=== PATIENT | female | born 1995 ===

== ENCOUNTER 2017-09-10 19:04 | Emergency (ER) | payer OTHER ==
[2017-09-10 19:11] VITALS: RESP 18; TEMP 98.6; O2SAT 99
[2017-09-10 19:54] VITALS: BP 134/95
[2017-09-10] MEDS ORDERED: Oxycodone/Acetaminophen 5/325 mg Tab PO STA (20:11)
--- NOTE | 2017-09-10 20:14 | ED PDOC ---
HPI: Skin/Bite Injury Time Seen by Provider: 09/10/17 19:20 Chief Complaint (Nursing): Abnormal Skin Integrity Chief Complaint (Provider): Pilonidal Cyst History Per: Patient Additional Complaint(s): 22 yo female, no PMH, presents to ED for evaluation of a possible sacral abscess. Pt reports that she felt pain and swelling to the area starting on Monday night. Pt notes history of abscess to affected area in the past that required I&D x 2 thus far. No fever or chills. Pt admits she was advised to follow up with surgeon but has yet to do so. Past Medical History Reviewed: Nursing Documentation, Vital Signs Vital Signs: Last Vital Signs Temp 98.6 F 09/10/17 19:09 Pulse 140 H 09/10/17 19:54 Resp 18 09/10/17 19:09 BP 134/95 H 09/10/17 19:54 Pulse Ox 99 09/10/17 19:09 - Medical History PMH: Anxiety - Surgical History Surgical History: Tonsillectomy (w/ adenoidectomy) - Family History Family History: States: Unknown Family Hx - Social History Current smoker - smoking cessation education provided: No Alcohol: Social Drugs: Denies - Immunization History Hx Tetanus Toxoid Vaccination: Yes Hx Influenza Vaccination: Yes Hx Pneumococcal Vaccination: Yes - Home Medications Home Medications: Ambulatory Orders Medication Instructions Recorded oxyCODONE/Acetaminophen [Percocet 1 ea PO Q6 PRN #10 tab 08/17/16 5/325 mg Tab] Cephalexin [cephalexin] 500 mg PO QID #28 cap 08/20/16 Docusate [Colace] 100 mg PO BID #20 cap 08/20/16 Sulfamethoxazole/Trimethoprim 2 tab PO BID #28 tab 08/20/16 [Bactrim DS 800 mg-160 mg] oxyCODONE/Acetaminophen [Percocet 1 - 2 ea PO Q6 PRN #10 tab 08/20/16 5/325 mg Tab] Metoclopramide [Reglan] 10 mg PO Q8 PRN #12 tab 10/27/16 Propranolol [Inderal] 20 mg PO BID #60 tab 10/27/16 Nitrofurantoin Macrocrystals 100 mg PO BID #10 cap 10/30/16 [Macrobid] - Allergies Allergies/Adverse Reactions: Allergies Allergy/AdvReac Type Severity Reaction Status Date / Time cat dander Allergy RASH Verified 09/10/17 19:08 ibuprofen Allergy SWELLING Verified 09/10/17 19:08 Review of Systems ROS Statement: Except As Marked, All Systems Reviewed And Found Negative Skin: Positive for: Other (abscess) Physical Exam - Reviewed Nursing Documentation Reviewed: Yes Vital Signs Reviewed: Yes - Physical Exam Appears: Positive for: Well, Non-toxic, No Acute Distress Head Exam: Positive for: ATRAUMATIC, NORMAL INSPECTION, NORMOCEPHALIC Skin: Positive for: Normal Color, Warm, DRY Eye Exam: Positive for: EOMI, Normal appearance, PERRL ENT: Positive for: Normal ENT Inspection Neck: Positive for: Normal, Painless ROM Cardiovascular/Chest: Positive for: Regular Rate, Rhythm Respiratory: Positive for: CNT, Normal Breath Sounds Gastrointestinal/Abdominal: Positive for: Normal Exam, Bowel Sounds, Soft Back: Positive for: Normal Inspection Rectal: Positive for: Tenderness (over sacrum with erythema and edema) Extremity: Positive for: Normal ROM Neurologic/Psych: Positive for: Alert, Oriented - ECG O2 Sat by Pulse Oximetry: 99 Medical Decision Making Medical Decision Making: Site incised and drained by rewriter. Site packed. wound care discussed 2 day return for wound check and packing removal surgical consult advised Disposition - Clinical Impression Clinical Impression: Abscess - Patient ED Disposition Is Patient to be Admitted: No - Disposition Disposition: Routine/Home Disposition Time: 20:15 Condition: STABLE - POA Present On Arrival: None Incision and Drainage - Time Out Time Out: Side verified, Site verified - Consent obtained Consent obtained: Verbal - Performed by Performed by: Mid-level Provider - Indications Indications: Cutaneous abscess - Contraindications Contraindications: None - Patient tolerated procedure Patient tolerated procedure: Well
[2017-09-10] MEDS ORDERED: Tmp-Smz 800 mg-160 mg DS Tab PO STA (20:17)
[2017-09-10 20:45] VITALS: PULSE 114
== END 2017-09-10 20:40 | disposition home or self-care (01) ==
LOC: H.ER 19:04
DX: L05.91 Pilonidal cyst without abscess (principal); F41.9 Anxiety disorder, unspecified

== ENCOUNTER 2017-09-13 14:10 | Emergency (ER) | payer OTHER ==
[2017-09-13 14:21] VITALS: BP 146/80; PULSE 99; RESP 16; TEMP 97; O2SAT 98
--- NOTE | 2017-09-13 14:42 | ED PDOC ---
HPI: Wound Care - HPI Time Seen by Provider: 09/13/17 14:28 Chief Complaint (Nursing): Wound Check Chief Complaint (Provider): Wound Check History Per: Patient Exam Limitations: no limitations Additional Complaint(s): 25 y/o female presents to the ED for wound check. Patient had abscess near coccyx drained and packed a few days ago. Patient taking prescribed antibiotics and pain medication. Denies fever or any further medical complaints. Past Medical History Reviewed: Historical Data, Nursing Documentation, Vital Signs Vital Signs: Last Vital Signs Temp 97 F L 09/13/17 14:19 Pulse 99 H 09/13/17 14:19 Resp 16 09/13/17 14:19 BP 146/80 09/13/17 14:19 Pulse Ox 98 09/13/17 14:19 - Medical History PMH: Anxiety - Surgical History Surgical History: Tonsillectomy (w/ adenoidectomy) - Family History Family History: States: Unknown Family Hx - Immunization History Hx Tetanus Toxoid Vaccination: Yes Hx Influenza Vaccination: Yes Hx Pneumococcal Vaccination: Yes - Home Medications Home Medications: Ambulatory Orders Medication Instructions Recorded oxyCODONE/Acetaminophen [Percocet 1 ea PO Q6 PRN #10 tab 08/17/16 5/325 mg Tab] Cephalexin [cephalexin] 500 mg PO QID #28 cap 08/20/16 Docusate [Colace] 100 mg PO BID #20 cap 08/20/16 Sulfamethoxazole/Trimethoprim 2 tab PO BID #28 tab 08/20/16 [Bactrim DS 800 mg-160 mg] oxyCODONE/Acetaminophen [Percocet 1 - 2 ea PO Q6 PRN #10 tab 08/20/16 5/325 mg Tab] Metoclopramide [Reglan] 10 mg PO Q8 PRN #12 tab 10/27/16 Propranolol [Inderal] 20 mg PO BID #60 tab 10/27/16 Nitrofurantoin Macrocrystals 100 mg PO BID #10 cap 10/30/16 [Macrobid] Cephalexin [cephalexin] 500 mg PO BID #14 cap 09/10/17 Sulfamethoxazole/Trimethoprim 1 tab PO BID 5 Days tab 09/10/17 [Bactrim DS 800 mg-160 mg] oxyCODONE/Acetaminophen [Percocet 1 ea PO Q6 PRN #5 tab 09/10/17 5/325 mg Tab] - Allergies Allergies/Adverse Reactions: Allergies Allergy/AdvReac Type Severity Reaction Status Date / Time cat dander Allergy RASH Verified 09/13/17 14:19 ibuprofen Allergy SWELLING Verified 09/13/17 14:19 Review of Systems ROS Statement: Except As Marked, All Systems Reviewed And Found Negative (As per HPI, otherwise negative) Constitutional: Negative for: Fever Skin: Positive for: Other (abscess near coccyx) Physical Exam - Reviewed Nursing Documentation Reviewed: Yes Vital Signs Reviewed: Yes - Physical Exam Appears: Positive for: Non-toxic, No Acute Distress Skin: Positive for: Normal Color, Warm, Dry Respiratory: Negative for: Accessory Muscle Use, Respiratory Distress Neurologic/Psych: Positive for: Alert, Oriented (x3) - ECG O2 Sat by Pulse Oximetry: 98 (RA) Pulse Ox Interpretation: Normal Medical Decision Making Medical Decision Making: Time: 14:40 Patient is medically stable, and requires no further treatment in the ED at this time. Patient will be discharged home. Clinical Impression: wound check, abscess Scribe Attestation: Documented by Jim Chauhan acting as a scribe for Chloe Adam MD. Scribe Attestation: All medical record entries made by the Scribe were at my direction and personally dictated by me. I have reviewed the chart and agree that the record accurately reflects my personal performance of the history, physical exam, medical decision making, and the department course for this patient. I have also personally directed, reviewed, and agree with the discharge instructions and disposition. Disposition - Clinical Impression Clinical Impression: Wound check, abscess - Disposition Referrals: [facility] [Outside] Disposition: Routine/Home Disposition Time: 14:40 Condition: STABLE Instructions: Abscess (ED) Forms: [employer] (Japanese), [employer] ED School/Work Excuse
--- NOTE | 2017-09-13 14:42 | ED PDOC ---
HPI: Wound Care - HPI Time Seen by Provider: 09/13/17 14:28 Chief Complaint (Nursing): Wound Check Chief Complaint (Provider): Packing removal, gluteal eagion, placed 09/10/17 History Of Present Illness: Reports improvement of pain. Pt taking antibiotics as prescribed. Past Medical History Reviewed: Historical Data, Nursing Documentation, Vital Signs Vital Signs: Last Vital Signs Temp 97 F L 09/13/17 14:19 Pulse 99 H 09/13/17 14:19 Resp 16 09/13/17 14:19 BP 146/80 09/13/17 14:19 Pulse Ox 98 09/13/17 14:19 - Medical History PMH: Anxiety - Surgical History Surgical History: Tonsillectomy (w/ adenoidectomy) - Family History Family History: States: Unknown Family Hx - Living Arrangements Living Arrangements: With Family - Social History Current smoker - smoking cessation education provided: No - Immunization History Hx Tetanus Toxoid Vaccination: Yes Hx Influenza Vaccination: Yes Hx Pneumococcal Vaccination: Yes - Home Medications Home Medications: Ambulatory Orders Medication Instructions Recorded oxyCODONE/Acetaminophen [Percocet 1 ea PO Q6 PRN #10 tab 08/17/16 5/325 mg Tab] Cephalexin [cephalexin] 500 mg PO QID #28 cap 08/20/16 Docusate [Colace] 100 mg PO BID #20 cap 08/20/16 Sulfamethoxazole/Trimethoprim 2 tab PO BID #28 tab 08/20/16 [Bactrim DS 800 mg-160 mg] oxyCODONE/Acetaminophen [Percocet 1 - 2 ea PO Q6 PRN #10 tab 08/20/16 5/325 mg Tab] Metoclopramide [Reglan] 10 mg PO Q8 PRN #12 tab 10/27/16 Propranolol [Inderal] 20 mg PO BID #60 tab 10/27/16 Nitrofurantoin Macrocrystals 100 mg PO BID #10 cap 10/30/16 [Macrobid] Cephalexin [cephalexin] 500 mg PO BID #14 cap 09/10/17 Sulfamethoxazole/Trimethoprim 1 tab PO BID 5 Days tab 09/10/17 [Bactrim DS 800 mg-160 mg] oxyCODONE/Acetaminophen [Percocet 1 ea PO Q6 PRN #5 tab 09/10/17 5/325 mg Tab] - Allergies Allergies/Adverse Reactions: Allergies Allergy/AdvReac Type Severity Reaction Status Date / Time cat dander Allergy RASH Verified 09/13/17 14:19 ibuprofen Allergy SWELLING Verified 09/13/17 14:19 Review of Systems ROS Statement: Except As Marked, All Systems Reviewed And Found Negative Constitutional: Negative for: Fever, Chills Skin: Positive for: Other Physical Exam - Reviewed Nursing Documentation Reviewed: Yes Vital Signs Reviewed: Yes - Physical Exam Appears: Positive for: Well, Non-toxic, No Acute Distress Head Exam: Positive for: ATRAUMATIC, NORMAL INSPECTION, NORMOCEPHALIC Skin: Positive for: Warm. Negative for: Normal Color (No erythema in the sacral area, packing in place ) Eye Exam: Positive for: Normal appearance ENT: Positive for: Normal ENT Inspection Neck: Positive for: Normal, Painless ROM Respiratory: Negative for: Accessory Muscle Use, Respiratory Distress Back: Positive for: Normal Inspection Extremity: Positive for: Normal ROM Neurologic/Psych: Positive for: Alert, Oriented - ECG O2 Sat by Pulse Oximetry: 98 Pulse Ox Interpretation: Normal Disposition - Clinical Impression Clinical Impression: Wound check, abscess - Disposition Referrals: [facility] [Outside] Disposition: Routine/Home Disposition Time: 14:35 Condition: STABLE Instructions: Abscess (ED) Forms: [employer] (Irish), [facility] ED School/Work Excuse
== END 2017-09-13 14:52 | disposition home or self-care (01) ==
LOC: H.ER 14:10
DX: Z48.02 Encounter for removal of sutures (principal); F41.9 Anxiety disorder, unspecified

== ENCOUNTER 2018-09-01 14:16 | Emergency (ER) | payer MEDICAID, OTHER ==
[2018-09-01 14:55] VITALS: TEMP 98.4; O2SAT 100
[2018-09-01] MEDS ORDERED: Sodium Chloride 0.9% 1,000 ML IV SCH (15:45)
[2018-09-01 15:54] LABS: BASO # 0.1 K/uL (0.0-0.2); BASO % 0.9 % (0.0-2.0); EOS % 0.2 % (0.0-4.0); HEMOGLOBIN 12.9 g/dL (12.0-16.0); LYMPH # 1.6 K/uL (1.0-4.3); LYMPH % 26.5 % (20.0-40.0); MEAN CELL VOLUME 81.9 fl (81.0-99.0); MEAN CORPUSCULAR HEMOGLOBIN 27.3 pg (27.0-31.0); MEAN CORPUSCULAR HGB CONC 33.3 g/dL (33.0-37.0); MEAN PLATELET VOLUME 9.7 fl (7.2-11.7); MONO # 0.6 K/uL (0.0-0.8); MONO % 9.6 % (0.0-10.0); NEUT # 3.7 K/uL (1.8-7.0); NEUT % 62.8 % (50.0-75.0); RBC 4.71 Mil/uL (3.80-5.20); RED CELL DISTRIBUTION WIDTH 13.5 % (11.5-14.5)
[2018-09-01 16:05] LABS: ALBUMIN 4.4 g/dL (3.5-5.0); ALT/SGPT 43 U/L (9-52); AST/SGOT 40 U/L (14-36); BLOOD UREA NITROGEN 10 mg/dl (7-17); CALCIUM 9.7 mg/dL (8.4-10.2); GFR NON-AFRICAN AMERICAN > 60; LIPASE 49 U/L (23-300)
--- NOTE | 2018-09-01 17:25 | ED PDOC ---
HPI: Abdomen Time Seen by Provider: 09/01/18 15:22 Chief Complaint (Nursing): Abdominal Pain Chief Complaint (Provider): Renal Stones History Per: Patient History/Exam Limitations: no limitations Onset/Duration Of Symptoms: Days (5-6), Waxing/Waning, Intermittent Episodes Outside of [place] travel?: No Other Location:: LUQ and flank Current Symptoms Are (Timing): Gone Now Severity: Mild Location Of Pain/Discomfort: LUQ (Pt presents to the ED complaining of intermittent left sided pain in the flank and LUQ; pt inidicates that she has a history of renal stones several years ago prior to their passing. Pt is afebrile and hemodynamically intact) Associated Symptoms: Back Pain. denies: Fever, Chills, Nausea, Vomiting, Diarrhea, Loss Of Appetite, Urinary Symptoms Abnormal Vaginal Bleeding: No Past Medical History Reviewed: Historical Data, Nursing Documentation, Vital Signs Vital Signs: Last Vital Signs Temp 98.4 F 09/01/18 14:53 Pulse 117 H 09/01/18 14:53 Resp 16 09/01/18 14:53 BP 131/81 09/01/18 14:53 Pulse Ox 100 09/01/18 14:53 - Medical History PMH: Anxiety, Kidney Stones - Surgical History Surgical History: Tonsillectomy (w/ adenoidectomy) - Family History Family History: States: Unknown Family Hx - Living Arrangements Living Arrangements: With Family - Social History Alcohol: None Drugs: Denies - Immunization History Hx Tetanus Toxoid Vaccination: Yes Hx Influenza Vaccination: Yes Hx Pneumococcal Vaccination: Yes - Home Medications Home Medications: Ambulatory Orders Medication Instructions Recorded oxyCODONE/Acetaminophen [Percocet 1 ea PO Q6 PRN #10 tab 08/17/16 5/325 mg Tab] Cephalexin [cephalexin] 500 mg PO QID #28 cap 08/20/16 Docusate [Colace] 100 mg PO BID #20 cap 08/20/16 Sulfamethoxazole/Trimethoprim 2 tab PO BID #28 tab 08/20/16 [Bactrim DS 800 mg-160 mg] oxyCODONE/Acetaminophen [Percocet 1 - 2 ea PO Q6 PRN #10 tab 08/20/16 5/325 mg Tab] Metoclopramide [Reglan] 10 mg PO Q8 PRN #12 tab 10/27/16 Propranolol [Inderal] 20 mg PO BID #60 tab 10/27/16 Nitrofurantoin Macrocrystals 100 mg PO BID #10 cap 10/30/16 [Macrobid] Cephalexin [cephalexin] 500 mg PO BID #14 cap 09/10/17 Sulfamethoxazole/Trimethoprim 1 tab PO BID 5 Days tab 09/10/17 [Bactrim DS 800 mg-160 mg] oxyCODONE/Acetaminophen [Percocet 1 ea PO Q6 PRN #5 tab 09/10/17 5/325 mg Tab] Acetaminophen [Tylenol 325mg tab] 2 tab PO TID #60 tab 09/01/18 Tamsulosin HCl [Flomax] 0.4 mg PO DAILY #30 cap.er.24h 09/01/18 - Allergies Allergies/Adverse Reactions: Allergies Allergy/AdvReac Type Severity Reaction Status Date / Time cat dander Allergy RASH Verified 09/13/17 14:19 ibuprofen Allergy SWELLING Verified 09/13/17 14:19 albuterol AdvReac DIZZINESS Uncoded 09/01/18 14:53 Review of Systems Constitutional: Negative for: Fever, Chills, Sweats Eyes: Negative for: Pain Gastrointestinal: Positive for: Abdominal Pain (mild luq pain that is currently not present). Negative for: Nausea, Vomiting, Constipation, Melena Genitourinary Female: Negative for: Dysuria, Frequency, Incontinence, Hematuria Psych: Positive for: Anxiety Physical Exam - Reviewed Nursing Documentation Reviewed: Yes Vital Signs Reviewed: Yes - Physical Exam Appears: Positive for: Well, Non-toxic, No Acute Distress. Negative for: Uncomfortable Head Exam: Positive for: ATRAUMATIC, NORMAL INSPECTION Skin: Positive for: Normal Color, Warm, Dry Eye Exam: Positive for: Normal appearance ENT: Positive for: Normal ENT Inspection Neck: Positive for: Normal, Painless ROM, Supple. Negative for: Decreased ROM Cardiovascular/Chest: Positive for: Regular Rate, Rhythm, Chest Non Tender. Negative for: Edema, Gallop, Murmur, Bradycardia, Tachycardia Respiratory: Positive for: Normal Breath Sounds. Negative for: Decreased Breath Sounds, Accessory Muscle Use, Crackles, Rales, Rhonchi, Stridor, Wheezing, Respiratory Distress Pulses-Carotid (L): 2+ Pulses-Carotid (R): 2+ Pulses-Radial (L): 2+ Pulses-Radial (R): 2+ Gastrointestinal/Abdominal: Positive for: Normal Exam, Bowel Sounds, Soft. Negative for: Tenderness, Organomegaly, Distended, Guarding, Rebound, Hernia, Asicites Back: Positive for: Normal Inspection. Negative for: L CVA Tenderness, R CVA Tenderness - Laboratory Results Result Diagrams: 09/01/18 15:50 09/01/18 15:50 Urine POC: Negative Urine dip results: Negative for: Leukocyte Esterase, Blood, Nitrate, Ketones, Glucose, Bilirubin, Protein - ECG O2 Sat by Pulse Oximetry: 100 Medical Decision Making Medical Decision Making: CT Abd/Pelvis: FINDINGS: LUNG BASES: The lung bases appear clear. No pleural effusions are seen. LIVER: Unremarkable. GALLBLADDER AND BILE DUCTS: The gallbladder appears within normal limits. No radioopaque gallstones are seen. No biliary ductal dilatation is evident. PANCREAS: Unremarkable. SPLEEN: Unremarkable. ADRENAL GLANDS: Unremarkable. KIDNEYS, URETERS, AND BLADDER: Six punctate (1-2mm) non-obstructing calculi are present in the mid pole of the left kidney. Single punctate 1 mm non-obstructing calculus is present in the mid pole of the right kidney. STOMACH AND BOWEL: Unremarkable appearance of the stomach and bowel. No evidence of bowel o bstruction. No evidence suggesting enteritis or colitis. APPENDIX: No evidence of acute appendicitis on CT examination. PERITONEUM: No free fluid. No free air. LYMPH NODES: No lymphadenopathy is evident. REPRODUCTIVE: Unremarkable as visualized. VASCULATURE: No evidence of abdominal aortic aneurysm. BONES: No aggressive appearing osseous lesion. No acute osseous pathology evident. IMPRESSION: 1. Six punctate (1-2mm) non-obstructing calculi are present in the mid pole of the left kidney. 2. Single punctate 1 mm non-obstructing calculus is present in the mid pole of the right kidney. 3. No acute pathology. Pt is stable for discharge and will be given a rx for floxmax as well as OTC apap for pain. Pt is encouraged to follow [facility] with [facility] All questions were responded to prior to discharge and the patient is stable for discharge, reporting a current pain level of zero Disposition - Clinical Impression Clinical Impression: Renal calculus or stone - Patient ED Disposition Is Patient to be Admitted: No Doctor Will See Patient In The: Office Counseled Patient/Family Regarding: Studies Performed, Diagnosis, Need For Followup - Disposition Referrals: [facility] [Outside] Disposition: Routine/Home Disposition Time: 18:02 Condition: STABLE Prescriptions: Acetaminophen [Tylenol 325mg tab] 2 tab PO TID #60 tab Tamsulosin HCl [Flomax] 0.4 mg PO DAILY #30 cap.er.24h Instructions: Kidney Stones in Adults, Kidney Stones (DC) Forms: [employer] (Luxembourger)
[2018-09-01 18:23] VITALS: BP 128/79; PULSE 92; RESP 18
--- NOTE | 2018-09-02 07:18 | CT ---
Date of service: 09/01/2018 PROCEDURE: CT Abdomen and Pelvis without intravenous contrast HISTORY: r/o stones COMPARISON: None. TECHNIQUE: Technique. Contrast dose: Radiation dose: Total exam DLP = 875.01 mGy-cm. This CT exam was performed using one or more of the following dose reduction techniques: Automated exposure control, adjustment of the mA and/or kV according to patient size, and/or use of iterative reconstruction technique. FINDINGS: LOWER THORAX: Unremarkable. LIVER: Unremarkable. No gross lesion or ductal dilatation. GALLBLADDER AND BILE DUCTS: Unremarkable. PANCREAS: Unremarkable. No gross lesion or ductal dilatation. SPLEEN: Unremarkable. ADRENALS: Unremarkable. No mass. KIDNEYS AND URETERS: Multiple punctate nonobstructive calculi in the left kidney measuring up to 2 millimeters. Punctate nonobstructive calculi in the right kidney is well.. No hydronephrosis. No solid mass. VASCULATURE: Unremarkable. No aortic aneurysm. No aortic atherosclerotic calcification or mural plaque present. BOWEL: Unremarkable. No obstruction. No gross mural thickening. APPENDIX: Unremarkable. Normal appendix. PERITONEUM: Unremarkable. No free fluid. No free air. LYMPH NODES: Unremarkable. No enlarged lymph nodes. BLADDER: Unremarkable. REPRODUCTIVE: Unremarkable. BONES: No acute fracture. OTHER FINDINGS: None. IMPRESSION: Bilateral nephrolithiasis.
== END 2018-09-01 18:20 | disposition home or self-care (01) ==
LOC: H.ER 14:16
DX: N20.0 Calculus of kidney (principal); Z87.442 Personal history of urinary calculi
CPT/HCPCS: 74176; 80053; 81025; 83690; 83735; 84100; 84484; 85025; 99284; J7030